=== PATIENT | male | born 1950 | race Caucasian/White ===

== ENCOUNTER 2023-05-06 05:08 | Inpatient (IN) | payer MEDICARE, SELFPAY ==
[2023-05-06] MEDS ORDERED: Metoprolol Tartrate 5 MG/5 ML VIAL ONE ×3 (05:30→07:38)
[2023-05-06 06:02] LABS: #Basophils 0.1 thou/uL (0.0-0.2); #Eosinphils 0.1 thou/uL (0.0-0.7); #Neutrophils 7.9 thou/uL (1.40-6.50); %Basophils 0.5 % (0.0-1.0); %Eosinophils 0.9 % (0.0-10.0); %Monocytes 10.2 % (0.0-10.0); Hematocrit 44.9 % (42.0-52.0); Hemoglobin 15.4 g/dL (14.0-18.0); Mean Corpuscular HGB CONC 34.3 g/dL (32.0-36.0); Mean Corpuscular Hemoglobin 35.5 pg (27.0-31.0); Mean Corpuscular Volume 103.5 fl (78.0-98.0); Mean Platelet Volume 10.6 fL (7.4-10.4); Platelet Count 174 10x3/uL (130-400); RBC Distribution Width 12.6 % (11.5-14.5); Red Blood Cell (RBC) Count 4.34 mill/uL (4.70-6.10)
[2023-05-06 06:27] LABS: ALT (SGPT) 13 U/L (8-55); AST (SGOT) 25 U/L (5-34); Albumin 4.3 g/dL (3.4-4.8); Alkaline Phosphatase 95 U/L (40-110); Anion Gap 15 mmol/L (10-20); BUN (Urea Nitrogen) 16 mg/dL (8.4-25.7); Bilirubin, Total 1.4 mg/dL (0.2-1.2); Calc. Creatinine Clearance 0 mL/min (70-130); Calcium 9.1 mg/dL (7.8-10.44); Carbon Dioxide 20 mmol/L (23-31); Chloride 105 mmol/L (98-107); Estimated GFR 71; Globulin 3.2 g/dL (2.4-3.5); Glucose 128 mg/dL (83-110); Magnesium 1.8 mg/dL (1.6-2.6); Potassium 4.1 mmol/L (3.5-5.1); Protein, Total 7.5 g/dL (5.8-8.1); Sodium 136 mmol/L (136-145)
[2023-05-06 06:29] LABS: Troponin I 0.017 ng/mL (< 0.028)
[2023-05-06] MEDS ORDERED: Amiodarone 150 MG/3 ML VIAL ONE ×2 (08:25→08:54)
[2023-05-06] MEDS ORDERED: Furosemide 40 MG/4 ML VIAL ONE (08:29)
[2023-05-06] MEDS ORDERED: Magnesium 2 GM/50 ML BAG (IN WATER) ONE (08:29)
[2023-05-06] MEDS ORDERED: Amiodarone 450 MG, Admixture Fee 1 EACH in Dextrose 5% in Water 250 ML IVPB SCH (08:30)
[2023-05-06 08:38] LABS: Actual Bicarbonate (HCO3a) 17.6 mEq/L (22-28); Analyzer IN Cardio ER; Base Excess (BEa) -7.5 mEq/L (-2.0 to +3.0); CO2 Tension 35.2 mmHg (35.0-45.0); Calcium, Ionized (arterial) 1.14 mmol/L (1.12-1.30); Carboxyhemoglobin (COHb) 0.6 gm% (0.0-3.0); Hematocrit-ABG 49 % (42.0-52.0); Hemoglobin (Hb) 16.6 g/dL (14.0-18.0); O2 Tension (PaO2), arterial 95.4 mmHg (> 70.0); Potassium - ABG Lab 4.29 mmol/L (3.70-5.30); pH, Arterial 7.318 (7.35-7.45)
[2023-05-06 08:42] LABS: Puncture Site RRA
[2023-05-06] MEDS ORDERED: cefTRIAXone (ROCEPHIN) 2 GM VIAL ONE (09:07)
[2023-05-06] MEDS ORDERED: Acetaminophen 500 MG TAB ONE (09:07)
[2023-05-06] MEDS ORDERED: Sodium Chloride 0.9% 100 ML ONE (09:08)
[2023-05-06 09:22] LABS: Bilirubin Negative (Negative); Blood, Urine 1+ (Negative); CAUTI Indications for Culture Dysuria,urgency,freq; Clarity Clear (Clear); Glucose, Urine (Dipstick) Normal (Negative); Ketone, Urine Negative (Negative); Leukocyte Negative Leu/uL (Negative); Nitrite Negative (Negative); Protein, Urine (Dipstick) 50 mg/dL (Neg-Trace); Specific Gravity, Urine 1.045 (1.002-1.036); Squamous Epithelial None Seen HPF (0-3); Urobilinogen Normal mg/dL (Less than 2); WBC/HPF 0-3 HPF (0-3); pH, Urine 5.5 (5.0-9.0)
[2023-05-06] MEDS ORDERED: Iopamidol 370 76% 100 ML VIAL ONE (09:22)
[2023-05-06 09:24] LABS: Bacteria/HPF 1+ HPF (None Seen)
[2023-05-06 09:25] LABS: INR-International Normal Ratio 2.5; PTT 38.6 sec (22.9-36.1)
[2023-05-06 09:25] LABS: Urine Culture Reflex No No
[2023-05-06] MEDS ORDERED: Vancomycin (BATCH) 2 GM in Premix 1 BAG IVPB SCH (10:00)
[2023-05-06] MEDS ORDERED: Vancomycin (BATCH) 2 GM/500 ML BAG ONE (10:26)
[2023-05-06] MEDS ORDERED: Ipratropium/Albuterol 3 ML NEB NEB PRN (10:55)
[2023-05-06] MEDS ORDERED: Nitroglycerin 0.4 MG TAB (25 Tab Bottle) SL PRN (11:01)
[2023-05-06] MEDS ORDERED: Ondansetron ODT 4 MG TAB PO PRN (11:03)
[2023-05-06] MEDS ORDERED: Calcium Carbonate 500 MG ChewTAB PO PRN (11:03)
[2023-05-06] MEDS ORDERED: Acetaminophen 325 MG TAB PO PRN (11:03)
[2023-05-06] MEDS ORDERED: Ondansetron PF 4 MG/2 ML Vial IVP PRN (11:03)
[2023-05-06 11:25] LABS: SARS-CoV-2 NAA Rapid Test Not Detected (NotDetected)
[2023-05-06 12:37] LABS: Troponin I 0.064 ng/mL (< 0.028)
[2023-05-06 15:46] LABS: Anion Gap 13 mmol/L (10-20); BUN (Urea Nitrogen) 16 mg/dL (8.4-25.7); Calc. Creatinine Clearance 0 mL/min (70-130); Calcium 8.5 mg/dL (7.8-10.44); Carbon Dioxide 21 mmol/L (23-31); Chloride 105 mmol/L (98-107); Estimated GFR 63; Glucose 146 mg/dL (83-110); Sodium 135 mmol/L (136-145)
[2023-05-06] MEDS: Rivaroxaban 10 MG TAB PO SCH (17:35)
[2023-05-06] MEDS ORDERED: Empagliflozin 10 MG TAB PO SCH (18:11)
[2023-05-06] MEDS: Furosemide 20 MG/2 ML VIAL SLOW IVP SCH (19:45)
[2023-05-06 20:49] VITALS: BMI 35.7
[2023-05-06] MEDS ORDERED: Metoprolol Tartrate 25 MG TAB PO SCH (21:00)
[2023-05-06] MEDS ORDERED: Vancomycin 1 GM in Premix 1 BAG IVPB SCH (21:00)
[2023-05-06] MEDS: Famotidine 20 MG TAB PO SCH (21:59)
[2023-05-06] MEDS: Vancomycin (BATCH) 1.25 GM in Premix 1 BAG IVPB SCH (21:59)
[2023-05-07 05:34] LABS: #Basophils 0.1 thou/uL (0.0-0.2); #Eosinphils 0.1 thou/uL (0.0-0.7); #Monocytes 1.1 thou/uL (0.11-0.59); #Neutrophils 7.2 thou/uL (1.40-6.50); %Basophils 0.5 % (0.0-1.0); %Lymphocytes 11.2 % (21.0-51.0); %Monocytes 11.6 % (0.0-10.0); %Neutrophils 75.3 % (42.0-75.0); Hematocrit 41.5 % (42.0-52.0); Hemoglobin 13.9 g/dL (14.0-18.0); Mean Corpuscular HGB CONC 33.5 g/dL (32.0-36.0); Mean Corpuscular Hemoglobin 35.6 pg (27.0-31.0); Mean Corpuscular Volume 106.4 fl (78.0-98.0); Mean Platelet Volume 10.7 fL (7.4-10.4); Platelet Count 144 10x3/uL (130-400); RBC Distribution Width 13.1 % (11.5-14.5); White Blood Cell (WBC) Count 9.6 10x3/uL (4.8-10.8)
[2023-05-07 05:42] LABS: Hemoglobin A1c 5.4 % (4.0-6.0)
[2023-05-07 06:00] LABS: ALT (SGPT) 15 U/L (8-55); AST (SGOT) 27 U/L (5-34); Albumin 3.7 g/dL (3.4-4.8); Alkaline Phosphatase 69 U/L (40-110); Anion Gap 14 mmol/L (10-20); BUN (Urea Nitrogen) 17 mg/dL (8.4-25.7); Bilirubin, Total 1.8 mg/dL (0.2-1.2); Calc. Creatinine Clearance 93 mL/min (70-130); Calcium 8.4 mg/dL (7.8-10.44); Carbon Dioxide 21 mmol/L (23-31); Chloride 106 mmol/L (98-107); Estimated GFR 66; Globulin 3.1 g/dL (2.4-3.5); Glucose 90 mg/dL (83-110); Magnesium 2.1 mg/dL (1.6-2.6); Phosphorus 2.9 mg/dL (2.3-4.7); Potassium 3.7 mmol/L (3.5-5.1); Protein, Total 6.8 g/dL (5.8-8.1); Sodium 137 mmol/L (136-145)
[2023-05-07 06:01] LABS: Troponin I 0.019 ng/mL (< 0.028)
[2023-05-07 06:15] LABS: Thyroid Stimulating Hormone 2.5846 uIU/mL (0.35-4.94); Vitamin D, 25 Hydroxy 40.7 ng/ml (> 30.0)
[2023-05-07] MEDS: Furosemide 20 MG/2 ML VIAL SLOW IVP SCH ×2 (07:29→17:20)
[2023-05-07] MEDS ORDERED: Potassium Chloride 20 MEQ TAB PO SCH (08:15)
[2023-05-07] MEDS ORDERED: Empagliflozin 10 MG TAB PO SCH (09:00)
[2023-05-07] MEDS ORDERED: Midazolam HCl 2 mg/2 ml Vial ONE (12:06)
[2023-05-07] MEDS ORDERED: PROPOFOL 200 MG/20 ML VIAL ONE (12:18)
[2023-05-07] MEDS ORDERED: Dronedarone HCl 400 MG TAB PO SCH (17:00)
[2023-05-07] MEDS: Spironolactone 25 MG TAB PO SCH (17:01)
[2023-05-07] MEDS: Famotidine 20 MG TAB PO SCH ×2 (17:02→21:32)
[2023-05-07] MEDS: cefTRIAXone\\ROCEPHIN 2 GM in Sodium Chloride 0.9% 100 ML IVPB SCH (17:02)
[2023-05-07] MEDS: Empagliflozin 10 MG TAB PO SCH (17:02)
[2023-05-07] MEDS: Vancomycin (BATCH) 1.25 GM in Premix 1 BAG IVPB SCH ×2 (17:02→21:31)
[2023-05-07] MEDS: Rivaroxaban 10 MG TAB PO SCH (17:20)
[2023-05-08 05:13] LABS: #Basophils 0.1 thou/uL (0.0-0.2); #Eosinphils 0.3 thou/uL (0.0-0.7); #Monocytes 1.1 thou/uL (0.11-0.59); #Neutrophils 4.1 thou/uL (1.40-6.50); %Basophils 0.9 % (0.0-1.0); %Eosinophils 3.7 % (0.0-10.0); %Lymphocytes 19.3 % (21.0-51.0); %Monocytes 15.4 % (0.0-10.0); %Neutrophils 60.3 % (42.0-75.0); Hematocrit 38.6 % (42.0-52.0); Hemoglobin 12.7 g/dL (14.0-18.0); Mean Corpuscular HGB CONC 32.9 g/dL (32.0-36.0); Mean Corpuscular Hemoglobin 35.4 pg (27.0-31.0); Mean Corpuscular Volume 107.5 fl (78.0-98.0); Mean Platelet Volume 10.3 fL (7.4-10.4); Platelet Count 144 10x3/uL (130-400); RBC Distribution Width 13.2 % (11.5-14.5); Red Blood Cell (RBC) Count 3.59 mill/uL (4.70-6.10); White Blood Cell (WBC) Count 6.8 10x3/uL (4.8-10.8)
[2023-05-08 05:40] LABS: ALT (SGPT) 15 U/L (8-55); AST (SGOT) 28 U/L (5-34); Albumin 3.7 g/dL (3.4-4.8); Alkaline Phosphatase 64 U/L (40-110); Anion Gap 12 mmol/L (10-20); BUN (Urea Nitrogen) 17 mg/dL (8.4-25.7); Bilirubin, Total 1.4 mg/dL (0.2-1.2); Calc. Creatinine Clearance 89 mL/min (70-130); Calcium 8.5 mg/dL (7.8-10.44); Carbon Dioxide 23 mmol/L (23-31); Chloride 103 mmol/L (98-107); Estimated GFR 66; Globulin 2.9 g/dL (2.4-3.5); Glucose 83 mg/dL (83-110); Magnesium 2.1 mg/dL (1.6-2.6); Potassium 3.3 mmol/L (3.5-5.1); Protein, Total 6.6 g/dL (5.8-8.1); Sodium 135 mmol/L (136-145)
[2023-05-08] MEDS: Spironolactone 25 MG TAB PO SCH (07:26)
[2023-05-08] MEDS ORDERED: Furosemide 40 MG TAB PO SCH (07:30)
[2023-05-08] MEDS ORDERED: Potassium Chloride 20 MEQ TAB PO SCH (08:00)
[2023-05-08 09:42] LABS: Vancomycin, Trough 16.7 ug/mL
[2023-05-08] MEDS: cefTRIAXone\\ROCEPHIN 2 GM in Sodium Chloride 0.9% 100 ML IVPB SCH (11:22)
[2023-05-08] MEDS: Empagliflozin 10 MG TAB PO SCH (11:24)
[2023-05-08] MEDS: Famotidine 20 MG TAB PO SCH (11:24)
[2023-05-08 11:50] VITALS: TEMP 98.2
[2023-05-08] MEDS: Vancomycin (BATCH) 1.25 GM in Premix 1 BAG IVPB SCH (12:40)
[2023-05-08 16:40] VITALS: BP 122/62
[2023-05-09] MEDS ORDERED: FLU VACC QS2023(65UP)/MF59C/PF 60 MCG/0.5 ML SYRINGE IM ONE (09:00)
== END 2023-05-08 18:30 | disposition home or self-care (01) | DRG 308 ==
LOC: ERS 05:08 → EEVIPCON 09:31 → ERHOLD 09:31 → 2SE 16:31
PROVIDERS: ADMIT Internal Medicine; ATTEND Family Medicine
PROC: 0T9B70Z Drainage of Bladder with Drainage Device, Via Natural or Artificial Opening (ICD-10-PCS; principal; 2023-05-06)
PROC: 4A033R1 Measurement of Arterial Saturation, Peripheral, Percutaneous Approach (ICD-10-PCS; 2023-05-06)
PROC: 5A09357 Assistance with Respiratory Ventilation, Less than 24 Consecutive Hours, Continuous Positive Airway Pressure (ICD-10-PCS; 2023-05-06)
PROC: 5A2204Z Restoration of Cardiac Rhythm, Single (ICD-10-PCS; 2023-05-07)
PROC: B24BZZ4 Ultrasonography of Heart with Aorta, Transesophageal (ICD-10-PCS; 2023-05-07)
DX: I48.19 Other persistent atrial fibrillation (principal); I50.21 Acute systolic (congestive) heart failure; J96.01 Acute respiratory failure with hypoxia; I11.0 Hypertensive heart disease with heart failure; Z79.899 Other long term (current) drug therapy; E83.42 Hypomagnesemia; M81.8 Other osteoporosis without current pathological fracture; E66.01 Morbid (severe) obesity due to excess calories; Z68.33 Body mass index [BMI] 33.0-33.9, adult; E87.6 Hypokalemia; Z88.0 Allergy status to penicillin; Z20.822 Contact with and (suspected) exposure to COVID-19; M85.88 Other specified disorders of bone density and structure, other site
CPT/HCPCS: 36415; 36600; 71045; 71046; 71275; 80053; 80202; 81001; 82306; 82805; 83036; 83605; 83735; 83880; 84100; 84443; 84484; 85025; 85610; 85730; 87040; 87086; 87149; 92960; 93005; 93010; 93306; 93312; 94760; 97139; J0282; J0696; J1940; J2250; J2704; J3370; J3475; J3490; J7070; Q9967